=== PATIENT | female | born 1950 | race Two or more races ===

== ENCOUNTER 2023-09-11 18:25 | Emergency (ER) | payer OTHER ==
[~2023-09-11] VITALS: Ht 167.6 cm; Wt 77.1 kg
[2023-09-11] MEDS ORDERED: NORVASC2.5 MG (18:41)
[2023-09-11] MEDS ORDERED: RALOXIFENE HCL60 MG (18:41)
[2023-09-11] MEDS ORDERED: COZAAR50 MG (18:41)
[2023-09-11] MEDS ORDERED: CRESTOR5 MG (18:41)
[2023-09-11] MEDS ORDERED: TENORMIN25 MG (18:41)
[2023-09-11] MEDS ORDERED: OMEPRAZOLE20 MG (18:41)
[2023-09-11] MEDS ORDERED: HORIZANT300 MG (18:42)
== END 2023-09-11 22:57 | disposition home or self-care (01) ==
LOC: ER 18:25
DX: S82.64XA Nondisplaced fracture of lateral malleolus of right fibula, initial encounter for closed fracture (principal); S82.899A Other fracture of unspecified lower leg, initial encounter for closed fracture; W19.XXXA Unspecified fall, initial encounter; Y93.9 Activity, unspecified; Y92.9 Unspecified place or not applicable; Y99.9 Unspecified external cause status
CPT/HCPCS: 73521; 73562; 73600; 96372; 99284; J1885; J2360